=== PATIENT | male | born 1955 | race Hispanic/Latino ===

== ENCOUNTER 2016-11-01 15:47 | Emergency (ER) | payer SELFPAY ==
[2016-11-01 15:58] VITALS: BP 174/93; PULSE 104; RESP 18; TEMP 97.2; O2SAT 98
== END 2016-11-01 16:40 | disposition left against medical advice (07) ==
LOC: C.ER 15:47
DX: R56.9 Unspecified convulsions (principal); Z02.9 Encounter for administrative examinations, unspecified